=== PATIENT | female | born 1940 | race Caucasian/White ===

== ENCOUNTER 2018-09-05 02:47 | Inpatient (IN) | payer MEDICARE, OTHER ==
--- NOTE | 2018-09-05 03:07 | ED ---
Adult Trauma - HPI Summary HPI Summary: This patient is a 78 year old F BIBA to ED with a chief complaint of unwitnessed falls and confusion yesterday. Patient lives alone at home and is usually able to take care of herself. Patient reports lower back pain and a bruise over the left eye. She is not on blood thinners. She is accompanied by her son who last saw her normal two days ago. The patient rates the pain 5/10 in severity. Symptoms aggravated by nothing. Symptoms alleviated by nothing. - History of Current Complaint Chief Complaint: EDFall Stated Complaint: FALL/AMS PER EMS Time Seen by Provider: 09/05/18 02:56 Hx Obtained From: Patient, Family/Station Mechanic - Son Mechanism of Injury: Fall Loss of Consciousness: unsure Onset/Duration: Started Days Ago - Yesterday Onset of Pain: Post Accident Onset Severity: Moderate Current Severity: Moderate Pain Intensity: 5 Pain Scale Used: 0-10 Numeric Location: Back Aggravating Factor(s): Nothing Alleviating Factor(s): Nothing Associated Signs & Symptoms: Positive: Ecchymosis - Over eye - Allergy/Home Medications Allergies/Adverse Reactions: Allergies Allergy/AdvReac Type Severity Reaction Status Date / Time No Known Allergies Allergy Verified 09/05/18 03:31 Home Medications: Home Medications NK [No Home Medications Reported] 09/05/18 [History Confirmed 09/05/18] PMH/Surg Hx/FS Hx/Imm Hx Endocrine/Hematology History: Denies: Hx Diabetes Cardiovascular History: Denies: Hx Hypertension Respiratory History: Denies: Hx Asthma, Hx Chronic Obstructive Pulmonary Disease (COPD) - Surgical History Surgery Procedure, Year, and Place: Cholecystectomy Infectious Disease History: No Infectious Disease History: Denies: Traveled Outside the [place] in Last 30 Days - Family History Known Family History: Negative: Hypertension, Diabetes - Social History Alcohol Use: None Hx Substance Use: No Substance Use Type: Reports: None Hx Tobacco Use: Yes Smoking Status (MU): Current Every Day Smoker Review of Systems Negative: Abdominal Pain Musculoskeletal: Other - Lower back pain Skin: Other - Bruise on face over left eye All Other Systems Reviewed And Are Negative: Yes Physical Exam - Summary Physical Exam Summary: Appearance: Well appearing, no pain distress Skin: warm, dry, reflects adequate perfusion Head/face: normal Eyes: black discoloration over left orbit ENT: normal Neck: supple, non-tender Respiratory: CTA, breath sounds present Cardiovascular: RRR, pulses symmetrical Abdomen: non-tender, soft Musculoskeletal: normal, strength/ROM intact Neuro: normal, sensory motor intact, A&Ox3 GCS: 15 Triage Information Reviewed: Yes Vital Signs On Initial Exam: Initial Vitals Temp Pulse Resp BP Pulse Ox 98.0 F 70 18 110/65 89 09/05/18 02:50 09/05/18 02:50 09/05/18 02:50 09/05/18 02:50 09/05/18 02:50 Vital Signs Reviewed: Yes Diagnostics - Vital Signs Vital Signs Temp Pulse Resp BP Pulse Ox 09/05/18 02:50 98.0 F 70 18 110/65 89 - Laboratory Result Diagrams: 09/05/18 04:51 09/05/18 04:51 Lab Statement: Any lab studies that have been ordered have been reviewed, and results considered in the medical decision making process. - Radiology CXR Radiology Interpretation Completed By: ED Physician Summary of Radiographic Findings: Right upper lobe infiltrate, PNA or mass, pending official radiology report. - CT Brain CT Interpretation Completed By: Radiologist Summary of CT Findings: No acute intracranial abnormality. Dr. Galvan has reviewed this radiology report. Maxillofacial CT CT Interpretation Completed By: Radiologist Summary of CT Findings: Mild soft tissue contusion in the left cheek. No acute fracture. Dr. Galvan has reviewed this radiology report. C-spine CT Interpretation Completed By: Radiologist Summary of CT Findings: 1. No acute findings. 2. Multilevel degenerative spondylosis, greatest at C5-C6 level with mild spinal stenosis and mild bilateral neural foraminal narrowing. 3. Enlarged left thyroid lobe with multiple nodules, the largest one measuring 3.2 cm. further evaluation with thyroid ultrasound may be considered. 4. Partially visualized dense consolidation in the right upper lobe and patchy groundglass opacities in the visualized bilateral lungs. If clinically warranted, further evaluation with dedicated CT of the chest may be considered. Pending official radiology report. L-spine CT Interpretation Completed By: Radiologist Summary of CT Findings: 1. Age indeterminate burst fracture of L3 vertebral body with retropulsion into the spinal canal. Moderate spinal stenosis at L2- L3. 2. Age indeterminate, probably chronic, fracture in the left transverse process of L3. 3. Multilevel degenerative spondylosis, greatest at L4-L5 level with moderate to severe central spinal canal stenosis and severe bilateral neural foraminal narrowing. Dr. Galvan has reviewed this radiology report. - EKG 0323 Cardiac Rate: Tachycardia - 101 BPM EKG Rhythm: Sinus Tachycardia Summary of EKG Findings: Sinus tachycardia at 101 BPM with STT changes and RBBB. Re-Evaluation - Re-Evaluation First Eval Re-Evaluation Time: 05:35 Comment: Discussed results with patient. Patient will be admitted with dx of PNA , mass of right upper lobe of lung, syncope, hypercalcemia, L3 fracture. Patient understands and agrees with this plan. Adult Trauma Course/Dx - Course Course Of Treatment: This patient is a 78 year old F BIBA to ED with a chief complaint of unwitnessed falls and confusion yesterday. EKG revealed sinus tachycardia at 101 BPM with STT changes and RBBB. Brain CT revealed no acute intracranial abnormality. Maxillofacial CT revealed mild soft tissue contusion in the left cheek. No acute fracture. CXR revealed right upper lobe infiltrate, PNA or mass, pending official radiology report. C-spine CT revealed 1. No acute findings. 2. Multilevel degenerative spondylosis, greatest at C5-C6 level with mild spinal stenosis and mild bilateral neural foraminal narrowing. 3. Enlarged left thyroid lobe with multiple nodules, the largest one measuring 3.2 cm. further evaluation with thyroid ultrasound may be considered. 4. Partially visualized dense consolidation in the right upper lobe and patchy groundglass opacities in the visualized bilateral lungs. If clinically warranted, further evaluation with dedicated CT of the chest may be considered. CT L-spine revealed 1. Age indeterminate burst fracture of L3 vertebral body with retropulsion into the spinal canal. Moderate spinal stenosis at L2-L3. 2. Age indeterminate, probably chronic, fracture in the left transverse process of L3. 3. Multilevel degenerative spondylosis, greatest at L4-L5 level with moderate to severe central spinal canal stenosis and severe bilateral neural foraminal narrowing. In the ED course, patient received Aspirin, Rocephin and Zithromax. Blood work obtained. Discussed results with Dr. Seaman, hospitalist, who accepted the patient for admission to [facility] Discussed patient case with Dr. Loera, neurosurgeon, who recommended an MRI. Patient will be admitted with dx of PNA, mass of right upper lobe of lung, syncope, hypercalcemia, L3 fracture. Patient understands and agrees with this plan. - Diagnoses Differential Diagnosis/HQI/PQRI: Positive: Contusion(s), Fracture, Hematoma(s), Sprain Provider Diagnoses: PNA (pneumonia), Mass of upper lobe of right lung, Syncope, Hypercalcemia, L3 vertebral fracture - Physician Notifications Discussed Care Of Patient With: Lily Seaman Time Discussed With Above Provider: 05:40 Instructed by Provider To: Other - Discussed patient case with Dr. Seaman, hospitalist, who accepted the patient for admission to [facility]. At 0548, discussed patient case with Dr. Loera, neurosurgeon, who recommended an MRI. - Critical Care Time Critical Care Time: 30-74 min - 60 min Discharge - Sign-Out/Discharge Documenting (check all that apply): Patient Departure Patient Received Moderate/Deep Sedation with Procedure: No - Discharge Plan Condition: Stable Disposition: ADMITTED TO [facility] Referrals: No Primary Care Phys,NOPCP [Primary Care Provider] - - Billing Disposition and Condition Condition: STABLE Disposition: Admitted to [facility] - Attestation Statements Document Initiated by Leeannibe: Yes Documenting Scribe: Frank Sanchez Provider For Whom Johnnie is Documenting (Include Credential): Sd Galvan MD Scribe Attestation: IFrank, scribed for Sd Galvan MD on 09/05/18 at 0621. Scribe Documentation Reviewed: Yes Provider Attestation: The documentation as recorded by the scribeFrank accurately reflects the service I personally performed and the decisions made by me, Sd Galvan MD Status of Scribe Document: Viewed
[2018-09-05] MEDS ORDERED: Azithromycin 500 mg/250 ml NS 500 MG/250 ML BAG IVPB ONE (04:36)
[2018-09-05] MEDS ORDERED: cefTRIAXone(*) 1 GM in NS 0.9% 50 ML* 50 ML IVPB ONE (04:36)
[2018-09-05 05:01] LABS: ABS Basophils 0.1 10^3/ul (0-0.2); ABS Lymphocytes 0.8 10^3/ul (1.0-4.8); ABS Monocytes 0.8 10^3/ul (0-0.8); ABS Neutrophils 5.8 10^3/ul (1.5-7.7); Eosinophil % 0.3 %; Hematocrit 36 % (35-47); Hemoglobin 13.1 g/dL (12.0-16.0); Lymphocyte % 10.9 %; Mean Corpuscular HGB Conc 37 g/dL (31-36); Mean Corpuscular Hemoglobin 34 pg (27-31); Mean Corpuscular Volume 92 fL (80-97); Mean Platelet Volume 6.4 fL (7.4-10.4); Nucleated Red Blood Cells % 0.1; Platelet Count 267 10^3/uL (150-450); Red Blood Count 3.89 10^6 /uL (3.70-4.87); Red Cell Distribution Width 15 % (10-15); White Blood Count 7.5 10^3/uL (3.5-10.8)
[2018-09-05 05:08] LABS: Activated Partial Thrombo Time 18.3 seconds (26.0-38.0); INR 0.98 (0.82-1.09)
[2018-09-05 05:18] LABS: ALT 15 U/L (7-52); AST 30 U/L (13-39); Albumin 3.5 g/dL (3.2-5.2); Albumin/Globulin Ratio 1.2 (1-3); Alkaline Phosphatase 96 U/L (34-104); Anion Gap 7 mmol/L (2-11); BUN/Creatinine Ratio 30.4 (8-20); Blood Urea Nitrogen 35 mg/dL (6-24); CO2 Carbon Dioxide 27 mmol/L (22-32); Chloride 100 mmol/L (101-111); Creatine Kinase 55 U/L (10-223); EGFR African American 55.5 (>60); EGFR Non-African American 45.9 (>60); Globulin 2.9 g/dL (2-4); Glucose 85 mg/dL (70-100); Potassium 4.2 mmol/L (3.5-5.0); Sodium 134 mmol/L (135-145); Total Protein 6.4 g/dL (6.4-8.9)
[2018-09-05] MEDS ORDERED: Aspirin 81 mg CHEW TAB* 81 MG TAB.CHEW PO ONE (05:31)
[2018-09-05 05:34] LABS: Calcium > 18.0 mg/dL (8.6-10.3)
[2018-09-05] MEDS ORDERED: Al Hydrox/Mg Hydrox/Simet LIQ* 30 ML UDC PO PRN (05:45)
[2018-09-05] MEDS ORDERED: Ondansetron INJ* 2 MG/ML VIAL IV PRN (05:45)
[2018-09-05] MEDS ORDERED: NS 0.9% 1000 ML** 1,000 ML IV SCH ×2 (05:45→08:15)
[2018-09-05] MEDS ORDERED: NS 0.9% 1000 ML** 1,000 ML IV ONE ×3 (05:59→16:03)
[2018-09-05] MEDS ORDERED: Calcitonin (Salmon) INJ* 200 UNITS/ML 2 ML VIAL IM ONE ×2 (06:18→18:00)
[2018-09-05 07:05] LABS: Vitamin D Total 25(OH) 12.8 ng/mL (20-50)
[2018-09-05] MEDS: Heparin VIAL(*) 5000 UNITS/ML VIAL (FIVE THOUSAND) SUBCUT SCH ×3 (07:17→20:44)
[2018-09-05 07:29] LABS: Troponin I 0.07 ng/mL (<0.04)
[2018-09-05] MEDS ORDERED: Zoledronic Acid* 4 MG in NS 0.9% 100 ML* 95 ML IVPB ONE (08:06)
--- NOTE | 2018-09-05 08:43 | HP ---
HISTORY AND PHYSICAL: DATE OF ADMISSION: 09/05/18 TIME OF ADMISSION: 6:15 a.m. PRIMARY CARE PHYSICIAN: None. CHIEF COMPLAINT: Found down. HISTORY OF PRESENT ILLNESS: This is a 78-year-old female with a history of thyroid nodule who presents to the emergency department after her son found her last evening. She is unable to provide the history of present illness. When asked why she is in the emergency department, she says "I was asked to help them get landed." Her son Raya is here with her and provides the history. He explains that on Wednesday evening around 7 p.m., he stopped by her house to see her and drop off food, but when he knocked she said hold on and a few minutes later he knocked again and he could hear her talking from closer to the door, but she was on the ground and she could not get to the door, and so she tried to slide him a olsen underneath the door, but could not. So, Raya's daughter climbed into a window and unlocked the door from the inside. They found Garcy lying on the floor on her side, alert and not in distress, but with ecchymosis on her face. Her son adds that she has become more weak and had decreased mobility over the past months. He suggested that she see a doctor about a week ago, but she refused. She does not have a routine medical followup and cannot remember the last time she saw a doctor. Her son also adds a general decline in her functional capacity over the past several months. Gracy believes that she has gained weight; however, her son thinks she has lost about 50 pounds. She denies night sweats, cough, hemoptysis, fevers, chest pain, shortness of breath, orthopnea, dyspnea on exertion. She does admit to constipation. In the emergency department, she was found to have hypercalcemia and concern for a lung mass versus pneumonia and was given ceftriaxone and azithromycin. She also complains of recent hip and back pain that has effected her mobility. PAST MEDICAL HISTORY: She had a partial thyroidectomy with right parathyroid removal 2 years ago. She believes this was for benign reasons. FAMILY HISTORY: Thyroid disease. SOCIAL HISTORY: She lives alone and operates independently in her ADLs and IADLs. She smokes 6 cigarettes per day and has smoked for a "long time." She is unable to tell me how long she has smoked for, but used to smoke heavier she says. REVIEW OF SYSTEMS: As per the HPI, the remainder of 14-point review of systems is negative. PHYSICAL EXAMINATION GENERAL: Drowsy elderly female, who appears older than her stated age. She awakes to voice and answers some of my questions, but falls asleep frequently. She answers most of my questions inappropriately. VITAL SIGNS: Temperature 97.4, heart rate 102, respiratory rate 18, pulse ox 94 % on 3 L, blood pressure 104/73. HEENT: Pupils are 4 mm bilaterally and reactive to light. No scleral icterus. She has an ecchymosis on her left orbit. Oral mucosa is extremely dry. NECK: No JVP. No adenopathy. Her thyroid is not palpable. She has an old thyroidectomy scar. She is tachycardic with no murmurs. LUNGS: Her lungs are clear bilaterally. She has no supraclavicular or cervical lymphadenopathy. ABDOMEN: Soft, nontender, nondistended. No CVA tenderness. EXTREMITIES: No edema, rashes, or ulcers. NEUROLOGIC: Her lower extremity strength is 3/5 bilaterally and I cannot attain patellar deep tendon reflexes. She is drowsy, but awakens to voice and participates in some of our conversation, but falls asleep quickly. DIAGNOSTIC STUDIES/LAB DATA: White blood cells 7.5, hemoglobin 13.1, platelets 267. INR 0.98. Sodium 134, potassium 4.2, chloride 100, BUN 35, creatinine 1.15, glucose 85, lactic acid 1.8, calcium over 18. Troponin 0.07. Imaging: A brain CT shows no acute intracranial abnormality, a cervical spine CT shows no acute findings, multilevel degenerative spondylosis, greatest at C5 to C6 level with mild spinal stenosis and mild bilateral neuroforaminal narrowing and large thyroid lobe with multiple nodules, largest one measuring 3.2 cm. Further evaluation with thyroid ultrasound may be considered and partially visualized dense consolidation in the right upper lobe and patchy ground glass opacities in the bilateral lungs. A lumbar spine CT shows age indeterminate burst fracture of L3 vertebral body with retropulsion into the spinal canal, moderate spinal stenosis at L2-3 age indeterminate, probable chronic fracture in the left transverse process of L3 multilevel degenerative spondylosis, greatest at L4-5 with [id number] central spinal canal stenosis and severe bilateral neuroforaminal narrowing. Maxillofacial CT: Mild soft tissue contusion in the left cheek. No acute fracture. Chest x-ray to my read shows hyperinflation with a large haziness in the right upper lobe. ASSESSMENT AND PLAN: This is a 78-year-old female with no significant past medical history, who presents to the emergency department after being down and was found to be profoundly hypercalcemic. 1. Hypercalcemia. The differential of hypercalcemia is broad and at this point is most concerning for a malignancy given her chest x-ray findings, her weight loss, and other associated symptoms like hip and back pain in combination with a significant tobacco history. I am ordering a CT chest now to better characterize the lung mass. I am adding on an ionized calcium, vitamin D, phosphorus, PTH, and PTHRP. She has not received any IV fluids yet. I am starting normal saline at 250 an hour and also given her calcitonin to bring her calcium down quickly. She will need close monitoring of her calcium levels. Depending on the results of her CT scan, consultations with Oncology or Endocrinology may be warranted, but I will hold off on these phone calls until we initiate a better workup. 2. Found down. I suspect this is related to the hypercalcemia had on a CK. She has marked muscular weakness and this may be multifactorial and related to her hypercalcemia, but also concerning given her L spine findings. I will work this up as below. 3. L3 burst fracture with retropulsion and transverse process fracture of L3. Dr. Galvan has a call out to Neurosurgery and we will appreciate their input. Ultimately, I think she will need an MRI of her L spine to better characterize these fractures and also evaluate whether metastatic disease is related to this. I will hold off on pain control now given her drowsiness and she is quite comfortable. 4. Elevated troponin. I suspect this was related to her fall and demand; however, her EKG is different than her prior EKG but that was 12 years ago. She has received aspirin in the emergency department. We will trend her troponin, monitor her on telemetry, and repeat an EKG later today. 5. DVT prophylaxis. Heparin subcu. 6. Disposition. Admit to inpatient for hypercalcemia. She may need Oncology, Endocrinology, and Neurosurgical consultations. She does not have a healthcare proxy; however, her son is her only child and she has no , so he will be the default healthcare proxy. She is currently unable to make decisions on her own. She has never made an advanced directive. She is full code at this time. [id number]/[facility] #: [id number] ELAINA
[2018-09-05 09:07] LABS: Urine Appearance Cloudy; Urine Bacteria 1+ (Absent); Urine Bilirubin Negative (Negative); Urine Blood 2+ (Negative); Urine Color Yellow; Urine Glucose Negative (Negative); Urine Ketones Trace (Negative); Urine Nitrite Positive (Negative); Urine Protein 1+(30 mg/dL) (Negative); Urine Red Blood Cell 2+(6-10/hpf) (Absent); Urine Specific Gravity 1.012 (1.010-1.030); Urine Squamous Epithelial Cell Present (Absent); Urine Urobilinogen Negative (Negative); Urine White Blood Cell 3+(>20/hpf) (Absent)
--- NOTE | 2018-09-05 11:57 | CONS ---
CONSULTATION REPORT: DATE OF CONSULT: 09/05/18 HISTORY OF PRESENT ILLNESS: A 78-year-old female who is post a witnessed mechanical fall at home. Son is at bedside to give history. According the son she fell patient attempting to answering the door, when he knocked on the door. During her fall she hit her head sustaining injury to her left eye. Patient was unable to stand after fall, she attempted slide olsen underneath the door. Eventually son reports having daughter go through the window to pen the door, that's when patient was found down on floor. She denies loss of consciousness. Currently, the patient has acute low back pain with no radicular pain x1 day. Denies any issues with loss of control of bladder or bowel. Son reports taking the patient home to his house because she refused to go the hospital to be evaluated. While at her son's house friend come over who happened to be a nurse , seen the patient and then suggested the patient come to the hospital. The patient was brought in by ambulance with complaint of low back pain with no radicular pain. CT scan was completed showing an L3 burst fracture with left distal TP fracture. Currently, the patient denies headache, nausea, vomiting, or visual changes. Also denies weakness in extremities as well. PREVIOUS MEDICAL HISTORY: The patient has history of thyroid pathology. PAST SURGICAL HISTORY: The patient has had surgery on thyroid and the gallbladder removed. MEDICATIONS: See chart. ALLERGIES: Son reports possible allergy to PENICILLIN. SOCIAL HISTORY: Positive for tobacco use. Denies alcohol use and negative drug use. OBJECTIVE: Temperature is 97.4, pulse is 95, blood pressure is 129/71, O2 saturation is 96%. PHYSICAL EXAM: The patient is lying flat on bed with no acute distress. She is very and confused slow to respond to questions. HEENT: The patient has a hematoma over the superior portion of the right eye. Neuro: GCS 15. Alert and oriented x2. The patient follows commands, but is confused with some of the commands given. Motor strength in upper extremity is 5/5 bilaterally with elbow flexion and extension. The patient has some discomfort with flexing and extending her head. Lower extremity motor strength is 5/5 with hip flexion and extension, with knee flexion and extension 5/5, plantar and dorsiflexion is 5/ 5. Sensation is intact throughout. Negative Babinski's. Negative clonus. DIAGNOSTIC STUDIES/LAB DATA: CT of head shows no acute bleeding or injury. CT of lumbar spine shows an L3 burst fracture with left transverse process fracture, age undetermined. CT of cervical spine completed, there are moderate degenerative changes, most severe at C5-C6, no acute findings noted. ASSESSMENT: A 78-year-old female with L3 burst fracture, left transverse process fracture. Neurologically intact with no focal deficits. PLAN: 1. Get CT scan of the thoracic spine. 2. Get MRI of the lumbar spine. 3. Follow up imaging. 4. The patient to remain on bedrest. 5. Get TLSO brace and have the patient fitted for TLSO brace and have brace at bedside. 6. If the patient has acute fracture, we will have the patient in brace, should be wearing brace anytime she is upright more than 45 degrees. We will also evaluate to see if the patient has acute ligament damage from fracture, which will determine our course of treatment. JOANN BEAR [id number]/[facility] #: [id number] MTDAg
[2018-09-05 12:44] LABS: Anion Gap 6 mmol/L (2-11); BUN/Creatinine Ratio 32.7 (8-20); Blood Urea Nitrogen 33 mg/dL (6-24); CO2 Carbon Dioxide 27 mmol/L (22-32); Chloride 105 mmol/L (101-111); EGFR African American 64.5 (>60); EGFR Non-African American 53.3 (>60); Glucose 108 mg/dL (70-100); Potassium 3.9 mmol/L (3.5-5.0); Sodium 138 mmol/L (135-145)
[2018-09-05 13:08] LABS: Troponin I 0.06 ng/mL (<0.04)
[2018-09-05] MEDS: NS 0.9% 1000 ML** 1,000 ML IV SCH (15:11)
--- NOTE | 2018-09-05 15:12 | PN ---
Subjective Date of Service: 09/05/18 Interval History: HOSPITALIST PROGRESS NOTE Patient seen and examined at bedside. Care reviewed and d/w Tyrell Stockton RN. She's just returned from MRI; she offers no complaints at this time. Most of the h/o is obtained from her son (Juancho) - he has noted progressive decline in her condition for > 3 months. C/o left hip pain, back pain, taking OTC NSAIDs for pain, sleeping with a warm bottle. Went to a chiropractor, but did not see her PCP (he thinks is Dr Paulino at [facility]). He also noticed significant weight loss, estimated around 30lbs. Over the past 3 weeks, he has noticed progressive weakness, confusion, and yesterday found her down as described in the HPI. Family History: Unchanged from Admission Social History: Unchanged from Admission Past Medical History: Unchanged from Admission Objective Active Medications: Al Hydrox/Mg Hydrox/Simethicone (Maalox Plus*) 30 ml PO Q6H PRN PRN Reason: INDIGESTION Calcitonin [place] (Miacalcin Inj*) 200 units IM ONCE ONE Stop: 09/05/18 18:01 Heparin Sodium (Porcine) (Heparin Vial(*)) 5,000 units SUBCUT Q8HR BRITTANY Last Admin: 09/05/18 07:17 Dose: 5,000 units Sodium Chloride (Ns 0.9% 1000 Ml) 1,000 mls @ 200 mls/hr IV PER RATE BRITTANY Ondansetron HCl (Zofran Inj*) 4 mg IV Q4H PRN PRN Reason: NAUSEA/VOMITING Vital Signs - 8 hr 09/05/18 09/05/18 09/05/18 07:12 07:20 07:50 Temperature Pulse Rate 92 93 96 Respiratory 18 14 23 Rate Blood Pressure 119/67 120/67 129/71 (mmHg) O2 Sat by Pulse 90 94 96 Oximetry 09/05/18 09/05/18 09/05/18 07:56 08:33 08:35 Temperature 97.4 F 97.3 F Pulse Rate 95 95 Respiratory 23 20 Rate Blood Pressure 129/71 106/66 (mmHg) O2 Sat by Pulse 96 88 93 Oximetry 09/05/18 09/05/18 10:59 14:13 Temperature 97.3 F Pulse Rate 90 Respiratory 17 Rate Blood Pressure 90/52 92/50 (mmHg) O2 Sat by Pulse 90 Oximetry Oxygen Devices in Use Now: Nasal Cannula Appearance: Elderly frail appearing lady lying in bed in NAD. Eyes: - - Left orbital ecchymosis Ears/Nose/Mouth/Throat: Mucous Membranes Moist Neck: Trachea Midline, - - Old thyroid surgery scar Respiratory: Symmetrical Chest Expansion and Respiratory Effort, Clear to Auscultation Cardiovascular: RRR - Normal S1 and S2 Abdominal: NL Sounds; No Tenderness; No Distention Extremities: - - No cyanosis or edema, has good capillary refill Neurological: - - Sleepy, easily arousable to voice, Ox2 (self and place) Result Diagrams: 09/05/18 04:51 09/05/18 12:02 Assess/Plan/Problems-Billing Assessment: Mrs Vallejo is a 78yo F with PMH of thyroid disease, who presented to ED after being found down at home, found to have severe hypercalcemia, hilar mass and bone lesions suggestive of metastatsis. - Patient Problems (1) Hypercalcemia Comment: - Likely associated with malignancy. - >18 on admission, down to 16.3. - PTH is 5.4, vitamin D 12.8. PTHrp is pending. - Has received NS 3 liters so far - will continue aggressive IVF and monitor for signs of fluid overload. - Continue calcitonin for 24 more hours. - Received Zoledronic acid today. - Awaiting Oncology input. (2) Hypotension Comment: - Suspect hypovolemia in the setting of severe hypercalcemia. - Lactic acid on admission was 1.8. - Will continue aggressive fluid resuscitation and monitor. (3) Pneumonia Comment: - Suspect post obstructive pneumonia in the setting of righ hilar mass. - Continue Ceftriaxone/Zithromax. - Check Legionella/Pneumococcal Ags. - Follow blood cultures. (4) Hilar mass Comment: - CT chest shows a right hilar mass - d/w Oncology - patient will likely need EBUS when more stable. - Pulmonary consult requested. (5) Vertebral fracture Comment: - CT shows T11 destructive osseous lesion with possible vertebral fracture; chronic compression fracture T6; indeterminate L3 burst fracture. - Neurosurgery consult requested - recommended MRI lumbar spine. (6) DVT prophylaxis Comment: - SQ heparin. (7) Full code status Status and Disposition: Inpatient. Son (Juancho) updated at bedside.
--- NOTE | 2018-09-05 19:08 | PN ---
Progress Note - Progress Note Date of Service: 09/05/18 Note: spoke with Dr. Rincon (radiology) about possible epidural tumor extension on CT thoracic spine. MRI T spine recommended and ordered
[2018-09-05 20:36] LABS: BUN/Creatinine Ratio 33.7 (8-20); EGFR African American 71.8 (>60); EGFR Non-African American 59.4 (>60); Potassium 3.7 mmol/L (3.5-5.0)
[2018-09-05] MEDS ORDERED: Haloperidol INJ IV/IM* 5 MG/ML AMP IM ONE (21:45)
[2018-09-06] MEDS: NS 0.9% 1000 ML** 1,000 ML IV SCH ×4 (00:12→22:41)
[2018-09-06 00:19] LABS: Calcium 16.3 mg/dL (8.6-10.3)
[2018-09-06 00:20] LABS: Troponin I 0.07 ng/mL (<0.04)
[2018-09-06] MEDS: cefTRIAXone(*) 1 GM in NS 0.9% 50 ML* 50 ML IVPB SCH (05:33)
[2018-09-06] MEDS: Azithromycin 500 mg/250 ml NS 500 MG/250 ML BAG IVPB SCH (05:55)
[2018-09-06] MEDS: Heparin VIAL(*) 5000 UNITS/ML VIAL (FIVE THOUSAND) SUBCUT SCH (05:55)
[2018-09-06 07:41] LABS: Calcium 12.7 mg/dL (8.6-10.3); EGFR African American 93.8 (>60); EGFR Non-African American 77.5 (>60); Potassium 3.4 mmol/L (3.5-5.0)
--- NOTE | 2018-09-06 07:45 | PN ---
Progress Note - Progress Note Date of Service: 09/06/18 Note: Patient has been unclear or if she has neck pain, she having given conflicting answers. Patient did attempt to flex and extend head and indicated she had pain , CT scan did not demonstrate any acute injury. At this time will recommend a [place] J collar and C spine MRI. In addition to the Thoracic and Lumbar spine MRI.
[2018-09-06 08:33] LABS: ABS Basophils 0.1 10^3/ul (0-0.2); ABS Lymphocytes 0.7 10^3/ul (1.0-4.8); ABS Monocytes 0.7 10^3/ul (0-0.8); Eosinophil % 0.2 %; Hematocrit 31 % (35-47); Hemoglobin 10.3 g/dL (12.0-16.0); Mean Corpuscular HGB Conc 34 g/dL (31-36); Mean Corpuscular Hemoglobin 29 pg (27-31); Mean Corpuscular Volume 86 fL (80-97); Mean Platelet Volume 6.8 fL (7.4-10.4); Nucleated Red Blood Cells % 0.1; Platelet Count 220 10^3/uL (150-450); Red Blood Count 3.57 10^6 /uL (3.70-4.87); Red Cell Distribution Width 16 % (10-15); White Blood Count 6.4 10^3/uL (3.5-10.8)
[2018-09-06] MEDS ORDERED: Haloperidol INJ IV/IM* 5 MG/ML AMP IM PRN (08:38)
[2018-09-06] MEDS ORDERED: Iohexol 300* (CONTRAST) 10 ML SDV IV ONE (09:45)
[2018-09-06] MEDS ORDERED: NS 0.9% 1000 ML** 1,000 ML IV ONE ×2 (11:48→12:59)
[2018-09-06] MEDS ORDERED: Lorazepam PYXIS KEY PRN (12:28)
[2018-09-06] MEDS ORDERED: Morphine INJ* 2 MG/ML 1 ML SYRINGE (TWO MG - NEW SYRINGE VERSION) ONE (12:45)
[2018-09-06] MEDS: Morphine INJ* 2 MG/ML 1 ML SYRINGE (TWO MG - NEW SYRINGE VERSION) IV PRN ×5 (12:48→22:47)
--- NOTE | 2018-09-06 13:16 | PN ---
Subjective Date of Service: 09/06/18 Interval History: HOSPITALIST PROGRESS NOTE Patient seen and examined at bedside. Care reviewed and d/w Erna Solano RN. She was agitated overnight and removed her IV. Confused, cursing at provider and RN at bedside. Able to move all 4 extremities with vigor, but would not follow commands. Re-evaluate later on with son at bedside, and at that time she appeared to be uncomfortable, grimacing, but could not pinpoint where pain is. Family History: Unchanged from Admission Social History: Unchanged from Admission Past Medical History: Unchanged from Admission Objective Active Medications: Haloperidol Lactate (Haldol Inj Iv/Im*) 2 mg IM Q6H PRN PRN Reason: AGITATION Last Admin: 09/06/18 09:40 Dose: 2 mg Sodium Chloride (Ns 0.9% 1000 Ml) 1,000 mls @ 200 mls/hr IV PER RATE [facility] Last Admin: 09/06/18 05:33 Dose: 200 mls/hr Azithromycin (Zithromax 500 Mg/250 Ml) 500 mg in 250 mls @ 250 mls/hr IVPB Q24H [facility] Last Admin: 09/06/18 05:55 Dose: 250 mls/hr Ceftriaxone Sodium 1 gm/ (Sodium Chloride) 50 mls @ 200 mls/hr IVPB Q24H [facility] Last Admin: 09/06/18 05:33 Dose: 200 mls/hr Sodium Chloride (Ns 0.9% 1000 Ml) 1,000 mls @ 0 mls/hr IV .BOLUS ONE Stop: 09/06/18 13:00 Last Admin: 09/06/18 13:03 Dose: 999 mls/hr Lorazepam (Ativan Inj*) 0.5 mg IV PUSH Q4H PRN PRN Reason: Anxiety/Severe agitation Miscellaneous (Ativan Pyxis Kim) 1 ea N/A .ATIVAN IV KIM PRN PRN Reason: PYXIS KIM Morphine Sulfate (Morphine Inj (Syringe))*) 1 mg IV Q1H PRN PRN Reason: Severe Pain/RR>24 Last Admin: 09/06/18 12:48 Dose: 1 mg Vital Signs - 8 hr 09/06/18 09/06/18 09/06/18 08:00 12:48 12:50 Respiratory 20 28 Rate Blood Pressure 94/44 (mmHg) Oxygen Devices in Use Now: Nasal Cannula Appearance: Elderly frail lady lying in bed in NAD Ears/Nose/Mouth/Throat: Mucous Membranes Moist Neck: Trachea Midline Respiratory: Symmetrical Chest Expansion and Respiratory Effort, Clear to Auscultation Cardiovascular: RRR - Normal S1 and S2 Abdominal: NL Sounds; No Tenderness; No Distention Neurological: - - Lethargic, arousable to voice, cursing examiner and RN, doesn' t follow commands, but moves 4 extremities Result Diagrams: 09/06/18 06:46 09/06/18 06:46 Microbiology and Other Data: Microbiology 09/05/18 04:51 Aerobic Blood Culture - Preliminary Blood Venous No Growth Day 1 Anaerobic Blood Culture - Preliminary No Growth Day 1 09/05/18 18:17 Legionella Urinary Antigen - Final Urine Negative Legionella Antigen 09/05/18 18:17 Streptococcus pneumoniae Ag Screen - Final Urine Negative S. pneumo Antigen Assess/Plan/Problems-Billing Assessment: Mrs Vallejo is a 78yo F with PMH of thyroid disease, who presented to ED after being found down at home, found to have severe hypercalcemia, hilar mass and bone lesions suggestive of metastatsis. - Patient Problems (1) Hypercalcemia Comment: - Likely associated with malignancy. - >18 on admission, down to 12.7. - PTH is 5.4, vitamin D 12.8. PTHrp is pending. - Will continue aggressive IVF and monitor for signs of fluid overload. - Received Zoledronic acid 09/05/18. - Awaiting Oncology input. (2) Hypotension Comment: - Suspect hypovolemia in the setting of severe hypercalcemia, but worse today. - Continue aggressive IVF. (3) Pneumonia Comment: - Suspect post obstructive pneumonia in the setting of righ hilar mass. - Continue Ceftriaxone/Zithromax. - Legionella/Pneumococcal Ags. - Blood cultures show no growth so far. (4) Hilar mass Comment: - CT chest shows a right hilar mass, likely represents primary Lung CA. (5) Vertebral fracture Comment: - CT shows T11 destructive osseous lesion with possible vertebral fracture; chronic compression fracture T6; indeterminate L3 burst fracture. - Thoracic spine CT shows T6 epidural expansion of tumor and possible spinal cord compression. (6) DVT prophylaxis Comment: - SQ heparin. (7) Full code status (8) End of life care Comment: - Lengthy conversation wtih son and DIL at bedside. Patient's is even more hypotensive today, even with aggressive IVF resuscitation yesterday. Will continue IVF, but we talked about aggressive measures, including transfer to ICU , central line, pressors, etc. We went over her probable diagnosis of Lung CA with metastasis, including the T6 on causing cord compression. They're very clear she would not want to pursue invasive measures, chemo or radiation. Goal at this time is to keep her comfortable while we wait for other family members to arrive. - Palliative care requested. Status and Disposition: Inpatient.
--- NOTE | 2018-09-06 16:10 | CONSULT ---
Palliative / Hospice Consult Ordering Provider: Linette Carpio Referal Reason: emotional/practical support - Subjective Code Status: DNR Advance Directives Location: No Advance Directives MOLST Part A Completed: Yes - on chart MOLST Part E Completed:: Yes - on chart - History or Present Illness History or Present Illness: 78yo female who fell at home and was brought to the ER by her son Wednesday night . Son has noted that mother has lost weight, been less mobile and more weak the past few weeks. PMH is significant partial thyroidectomy with R parathyroid removal 2yrs ago. She doesn't go to the doctors often. Pt lives on her own, smokes, no etoh, no drugs. Son Juancho is her HCP . Studies show CXR- RUL pneumonia, ekg-sinus tach, RBB, inferior infarct, brain CT neg, maxofacial CT neg,C/S CT no acute findings, lumbar spine CT showed L3 fx with retropulsion into spinal canal, spinal stenosis, chest CT-R hilar mass with lymph node enlargement, RUL mass like consolidation, destructive osseous lesion T11, lumbar spine MRI-50% compression of L3 vertebrae, thoracic spine MRI-severe compression fx V6 with epidural extension of tumor, H/H 10.3/31, BUN/Cr 9/.73 egfr 77.5, Ca 12.7, tprot 6.4 and alb 3.5. All history is from family and the medical record, pt is unable to contribute. Pt was admitted with hypercalcemia with concern for malignancy, L3 fracture and post obstructive pneumonia secondary to RUL mass. Lab Values: Abnormal Lab Results 09/05/18 09/05/18 09/05/18 04:51 12:02 20:13 WBC RBC Hgb Hct MCV MCH MCHC RDW Plt Count MPV Neut % (Auto) Lymph % (Auto) [place] % (Auto) Eos % (Auto) Baso % (Auto) Absolute Neuts (auto) Absolute Lymphs (auto) Absolute Monos (auto) Absolute Eos (auto) Absolute Basos (auto) Absolute Nucleated RBC Nucleated RBC % Sodium 140 Potassium 3.7 Chloride 111 Carbon Dioxide 21 L Anion Gap 8 BUN 31 H Creatinine 0.92 Est GFR ( Amer) 71.8 Est GFR (Non-Af Amer) 59.4 BUN/Creatinine Ratio 33.7 H Glucose 84 Calcium 16.3 H* 14.0 H* Troponin I 0.07 H* 09/06/18 09/06/18 06:46 06:46 WBC 6.4 RBC 3.57 L Hgb 10.3 L Hct 31 L MCV 86 MCH 29 MCHC 34 RDW 16 H Plt Count 220 MPV 6.8 L Neut % (Auto) 77.2 Lymph % (Auto) 11.0 [place] % (Auto) 10.2 Eos % (Auto) 0.2 Baso % (Auto) 1.4 Absolute Neuts (auto) 5.0 Absolute Lymphs (auto) 0.7 L Absolute Monos (auto) 0.7 Absolute Eos (auto) 0.0 Absolute Basos (auto) 0.1 Absolute Nucleated RBC 0.0 Nucleated RBC % 0.1 Sodium 143 Potassium 3.4 L Chloride 112 H Carbon Dioxide 22 Anion Gap 9 BUN 27 H Creatinine 0.73 Est GFR ( Amer) 93.8 Est GFR (Non-Af Amer) 77.5 BUN/Creatinine Ratio 37.0 H Glucose 76 Calcium 12.7 H Troponin I Laboratory Last Values WBC 6.4 10^3/uL (3.5-10.8) 09/06/18 06:46 RBC 3.57 10^6 /uL (3.70-4.87) L 09/06/18 06:46 Hgb 10.3 g/dL (12.0-16.0) L 09/06/18 06:46 Hct 31 % (35-47) L 09/06/18 06:46 MCV 86 fL (80-97) 09/06/18 06:46 MCH 29 pg (27-31) 09/06/18 06:46 MCHC 34 g/dL (31-36) 09/06/18 06:46 RDW 16 % (10-15) H 09/06/18 06:46 Plt Count 220 10^3/uL (150-450) 09/06/18 06:46 MPV 6.8 fL (7.4-10.4) L 09/06/18 06:46 Neut % (Auto) 77.2 % 09/06/18 06:46 Lymph % (Auto) 11.0 % 09/06/18 06:46 [place] % (Auto) 10.2 % 09/06/18 06:46 Eos % (Auto) 0.2 % 09/06/18 06:46 Baso % (Auto) 1.4 % 09/06/18 06:46 Absolute Neuts (auto) 5.0 10^3/ul (1.5-7.7) 09/06/18 06:46 Absolute Lymphs (auto) 0.7 10^3/ul (1.0-4.8) L 09/06/18 06:46 Absolute Monos (auto) 0.7 10^3/ul (0-0.8) 09/06/18 06:46 Absolute Eos (auto) 0.0 10^3/ul (0-0.6) 09/06/18 06:46 Absolute Basos (auto) 0.1 10^3/ul (0-0.2) 09/06/18 06:46 Absolute Nucleated RBC 0.0 10^3/ul 09/06/18 06:46 Nucleated RBC % 0.1 09/06/18 06:46 INR (Anticoag Therapy) 0.98 (0.82-1.09) 09/05/18 04:51 APTT 18.3 seconds (26.0-38.0) L 09/05/18 04:51 Sodium 143 mmol/L (135-145) 09/06/18 06:46 Potassium 3.4 mmol/L (3.5-5.0) L 09/06/18 06:46 Chloride 112 mmol/L (101-111) H 09/06/18 06:46 Carbon Dioxide 22 mmol/L (22-32) 09/06/18 06:46 Anion Gap 9 mmol/L (2-11) 09/06/18 06:46 BUN 27 mg/dL (6-24) H 09/06/18 06:46 Creatinine 0.73 mg/dL (0.51-0.95) 09/06/18 06:46 Est GFR ( Amer) 93.8 (>60) 09/06/18 06:46 Est GFR (Non-Af Amer) 77.5 (>60) 09/06/18 06:46 BUN/Creatinine Ratio 37.0 (8-20) H 09/06/18 06:46 Glucose 76 mg/dL (70-100) 09/06/18 06:46 Lactic Acid 1.8 mmol/L (0.5-2.0) 09/05/18 04:51 Calcium 12.7 mg/dL (8.6-10.3) H 09/06/18 06:46 Ionized Calcium 2.67 mmol/L (1.16-1.32) H* 09/05/18 06:32 Phosphorus 4.0 mg/dL (2.5-5.0) 09/05/18 04:51 Total Bilirubin 0.80 mg/dL (0.2-1.0) 09/05/18 04:51 AST 30 U/L (13-39) 09/05/18 04:51 ALT 15 U/L (7-52) 09/05/18 04:51 Alkaline Phosphatase 96 U/L (34-104) 09/05/18 04:51 Total Creatine Kinase 55 U/L (10-223) 09/05/18 04:51 Troponin I 0.06 ng/mL (<0.04) H* 09/05/18 12:02 B-Natriuretic Peptide 151 pg/mL (<=100) H 09/05/18 04:51 Total Protein 6.4 g/dL (6.4-8.9) 09/05/18 04:51 Albumin 3.5 g/dL (3.2-5.2) 09/05/18 04:51 Globulin 2.9 g/dL (2-4) 09/05/18 04:51 Albumin/Globulin Ratio 1.2 (1-3) 09/05/18 04:51 25-OH Vitamin D Total 12.8 ng/mL (20-50) L 09/05/18 04:51 PTH Intact 5.4 pg/mL (12-88) L 09/05/18 04:51 Calcium (PTH Intact) > 18.0 mg/dL (8.6-10.3) H* 09/05/18 04:51 Urine Color Yellow 09/05/18 08:39 Urine Appearance Cloudy 09/05/18 08:39 Urine pH 5.0 (5-9) 09/05/18 08:39 Ur Specific [place] 1.012 (1.010-1.030) 09/05/18 08:39 Urine Protein 1+(30 mg/dl) (Negative) A 09/05/18 08:39 Urine Ketones Trace (Negative) A 09/05/18 08:39 Urine Blood 2+ (Negative) A 09/05/18 08:39 Urine Nitrate Positive (Negative) A 09/05/18 08:39 Urine Bilirubin Negative (Negative) 09/05/18 08:39 Urine Urobilinogen Negative (Negative) 09/05/18 08:39 Ur Leukocyte Esterase 3+ (Negative) A 09/05/18 08:39 Urine WBC (Auto) 3+(>20/hpf) (Absent) A 09/05/18 08:39 Urine RBC (Auto) 2+(6-10/hpf) (Absent) A 09/05/18 08:39 Ur Squamous Epith Cells Present (Absent) A 09/05/18 08:39 Urine Bacteria 1+ (Absent) A 09/05/18 08:39 Urine Glucose Negative (Negative) 09/05/18 08:39 - Objective Active Medications: Haloperidol Lactate (Haldol Inj Iv/Im*) 2 mg IM Q6H PRN PRN Reason: AGITATION Last Admin: 09/06/18 09:40 Dose: 2 mg Azithromycin (Zithromax 500 Mg/250 Ml) 500 mg in 250 mls @ 250 mls/hr IVPB Q24H [facility] Last Admin: 09/06/18 05:55 Dose: 250 mls/hr Ceftriaxone Sodium 1 gm/ (Sodium Chloride) 50 mls @ 200 mls/hr IVPB Q24H [facility] Last Admin: 09/06/18 05:33 Dose: 200 mls/hr Sodium Chloride (Ns 0.9% 1000 Ml) 1,000 mls @ 100 mls/hr IV PER RATE [facility] Lorazepam (Ativan Inj*) 0.5 mg IV PUSH Q4H PRN PRN Reason: Anxiety/Severe agitation Miscellaneous (Ativan Pyxis Kim) 1 ea N/A .ATIVAN IV KIM PRN PRN Reason: PYXIS KIM Morphine Sulfate (Morphine Inj (Syringe))*) 1 mg IV Q1H PRN PRN Reason: Severe Pain/RR>24 Last Admin: 09/06/18 14:10 Dose: 1 mg Vital Signs: Vital Signs: Temp Pulse Resp BP Pulse Ox 98.2 F 71 18 98/49 86 09/06/18 15:35 09/06/18 15:35 09/06/18 15:35 09/06/18 15:35 09/06/18 15:35 Patient Weight: Weight 63.503 kg Intake and Output: Intake & Output 09/04/18 09/05/18 09/06/18 09/07/18 06:59 06:59 06:59 06:59 Intake Total 4610 1952 Output Total 1150 1200 Balance 3460 752 Weight 51.437 kg 63.503 kg Intake: IV Fluids 4450 1951 NS 3300 1951 zoledronic acid 100 Oral 160 Output: Urine 250 Nathan 900 1200 Other: Date of Last Bowel unknwon Movement # Bowel Movements 0 unknown ADLs: Meal Record Start: 09/05/18 06: 58 Freq: DAILY@0900,1400,1800 Status: Active Protocol: Created 09/05/18 06:58 System (Rec: 09/05/18 06:58 System [id number]) Document 09/05/18 09:00 [id number] (Rec: 09/05/18 16:15 [id number] MED-C09) Document 09/05/18 14:00 [id number] (Rec: 09/05/18 19:43 [id number] MED-C11) Document 09/05/18 18:00 [id number] (Rec: 09/05/18 19:45 [id number] MED-C11) Document 09/06/18 07:40 [id number] (Rec: 09/06/18 07:40 [id number] MED-M01) Document 09/06/18 14:00 [id number] (Rec: 09/06/18 14:44 [id number] MED-C11) Intake and Output Start: 09/05/18 02: 55 Freq: Status: Cancelled Protocol: Created 09/05/18 02:55 System (Rec: 09/05/18 02:55 System [id number]) Intake and Output Start: 09/05/18 06: 58 Freq: DAILY@0600,1400,2200 Status: Cancelled Protocol: Created 09/05/18 06:58 System (Rec: 09/05/18 06:58 System [id number]) Intake and Output Start: 09/05/18 14: 49 Freq: 06,14,2200 Status: Active Protocol: Created 09/05/18 14:49 [id number] (Rec: 09/05/18 14:49 [id number]) Document 09/05/18 21:26 [id number] (Rec: 09/05/18 21:27 [id number] MED-C26) Document 09/06/18 05:58 [id number] (Rec: 09/06/18 05:59 [id number] MED-C26) Document 09/06/18 14:00 [id number] (Rec: 09/06/18 14:44 [id number] MED-C11) Eyes: - - Left orbital ecchymosis Ears/Nose/Mouth/Throat: Mucous Membranes Moist Neck: Trachea Midline Cardiovascular: RRR - Normal S1 and S2 Abdominal: NL Sounds; No Tenderness; No Distention Extremities: - - No cyanosis or edema, has good capillary refill Neurological: - - Lethargic, arousable to voice, cursing examiner and RN, doesn' t follow commands, but moves 4 extremities - Assessment Assessment: 78 yo female with hypercalemia, RUL mass, pneumonia and L3 fracture - Plan Consult Plan (MU): Hospice Plan: Spoke with son he felt given his mother's avoidance of doctors she would not want her life prolonged and opted for DNR/DNI. Because she is unresponsive, after speaking with the hospitalist, it was decided to pursue comfort care measures. Pt is getting some fluids and antibiotics. I was unable to discuss some other issues since relatives arrived, will follow up with son tomorrow. Support given and questions answered. KPS 20%, PPS 20% - Time On Unit Date of Evaluation: 09/06/18 Hospice Consult Time in: 15:30 Hospice Consult Time Out: 16:30 Hospice Consult Time Total: 60 > 50% of Time Spend In Counseling or Coordinating Care: Yes
--- NOTE | 2018-09-06 18:10 | CONS ---
PULMONARY CONSULTATION REPORT: DATE OF CONSULT: 09/06/18 CONSULTATION REQUESTED BY: Dr. Lorenzo. REASON FOR CONSULT: Evaluation of abnormal CT chest. HISTORY OF PRESENT ILLNESS: The patient is a 78-year-old female, current smoker , with significant smoking history, who presents for evaluation of fall. The patient is unable to provide any history at this time due to metabolic encephalopathy, elevated calcium. History obtained from in care hospitalist physician and review of her medical records. As per the bedside RN, the patient continues to be combative. She was not in any significant distress at the time of my exam. She was not combative. She was unable to, however, provide any history. The patient was admitted for management of hypercalcemia. Further evaluation in the hospital showed significant mediastinal adenopathy. I have personally reviewed the CT scan of her chest. The patient with right hilar mass with dense lymphadenopathy in the mediastinum. The patient also with multifocal ground-glass opacities and a mass- like consolidation in the right upper lobe. She also has small right pleural effusion. The patient with destructive osseous lesion in T11 and chronic compression fracture in T6. She has a history of thyroid nodules, found to have enlarged left thyroid with multiple nodules, largest measuring 3.2 cm. PAST MEDICAL HISTORY: Partial thyroidectomy and right parathyroid removal 2 years ago for possible benign lesions. FAMILY HISTORY: Thyroid disease. SOCIAL HISTORY: She lives alone and is independent with her activities of daily living. Significant smoking history, continues to smoke about 6 cigarettes prior to the hospitalization. REVIEW OF SYSTEMS: Unable to obtain secondary to the patient's condition. PHYSICAL EXAM: An elderly female, in bed, in no apparent distress, opens her eyes to questions. Vital Signs: Temperature 98.2, pulse 71 beats per minute, respiratory rate 18 per minute, O2 sat 86% on room air, blood pressure 98/49. HEENT: Pupils equal, reactive to light. Mucous membranes moist. Lungs: Diminished air entry; however, clear to auscultation. Lymphatic: No palpable supraclavicular or cervical adenopathy. Abdomen: Soft, nontender, nondistended. Bowel sounds present. Extremities: Normal range of motion. DIAGNOSTIC STUDIES/LAB DATA: WBC count 6.4, hemoglobin 10.3, hematocrit 31, platelet count of 220. Sodium 143, potassium 3.4, chloride 112, bicarb 22, BUN 27, creatinine 0.73, calcium 16.3 on admission down to 12.7 today. Troponin is slightly elevated. PTH 5.4, calcium/PTH ratio significantly elevated. CT scan of the chest as described above in HPI. IMPRESSION AND RECOMMENDATIONS: 78-year-old female with significant smoking history with right hilar mass and significant mediastinal adenopathy, possible destructive lesion in T11 concerning for bone mets, also with hypercalcemia and confusion as a result of that. Findings concerning for lung cancer, likely squamous with hypercalcemia. She also has postobstructive pneumonia secondary to the dense right hilar mass in the right upper lobe area. She is on antibiotics for postobstructive pneumonia. Septic workup has been negative so far. The patient is still with altered mental status. Pulmonary consultation was requested for bronchoscopy for diagnosis. Bronchoscopy could not be performed at this time given her underlying condition. Reviewed palliative care consultation. Family is leaning towards palliative care comfort measures. If family decides tissue diagnosis, will then schedule her for a bronchoscopy when she is stable. Thank you for allowing me to participate in the care of your patient. Will follow up with you. [id number]/[facility] #: [id number] ELAINA
--- NOTE | 2018-09-07 00:05 | PN ---
Progress Note - Progress Note Date of Service: 09/07/18 Note: Discussed with patient's son earlier today. Chart notes reviewed. Patient's family would like to pursue care and comfort measures at this point and would not like to consider surgical intervention or other treatments at this point. Appreciate , Paliative care. Mustapha Loera MD
[2018-09-07] MEDS: LORazepam INJ* 2 MG/ML 1 ML VIAL IV PUSH PRN ×3 (02:50→22:36)
[2018-09-07] MEDS: cefTRIAXone(*) 1 GM in NS 0.9% 50 ML* 50 ML IVPB SCH (04:27)
[2018-09-07] MEDS: Azithromycin 500 mg/250 ml NS 500 MG/250 ML BAG IVPB SCH (04:51)
[2018-09-07] MEDS: NS 0.9% 1000 ML** 1,000 ML IV SCH (09:50)
[2018-09-07] MEDS ORDERED: Atropine 1% (ORAL/SL)* 15 ML BTL SL PRN (12:06)
[2018-09-07] MEDS: Morphine INJ* 2 MG/ML 1 ML SYRINGE (TWO MG - NEW SYRINGE VERSION) IV PRN ×2 (13:28→19:59)
--- NOTE | 2018-09-07 19:33 | PN ---
Subjective Date of Service: 09/07/18 Interval History: HOSPITALIST PROGRESS NOTE Patient seen and examined at bedside. Care reviewed and d/w Erna Solano RN. She requires multiple doses of Morphine yesterday, but none this AM. Was lethargic when I saw her, but became tachypneic and agitated when I examined her. Multiple family members at bedside. Family History: Unchanged from Admission Social History: Unchanged from Admission Past Medical History: Unchanged from Admission Objective Active Medications: Atropine Sulfate (Atropine 1% (Oral/Sl)*) 2 drop SL Q2H PRN PRN Reason: Terminal secretions Lorazepam (Ativan Inj*) 0.5 mg IV PUSH Q4H PRN PRN Reason: Anxiety/Severe agitation Last Admin: 09/07/18 15:26 Dose: 0.5 mg Miscellaneous (Ativan Pyxis Kim) 1 ea N/A .ATIVAN IV KIM PRN PRN Reason: PYXIS KIM Morphine Sulfate (Morphine Inj (Syringe))*) 1 mg IV Q1H PRN PRN Reason: Severe Pain/RR>24 Last Admin: 09/07/18 13:28 Dose: 1 mg Morphine Sulfate (Morphine Oral Concentrate*) 5 mg SL Q2H PRN PRN Reason: Pain/Tachypnea RR>24 Vital Signs - 8 hr 09/07/18 09/07/18 09/07/18 13:28 14:25 15:26 Respiratory 19 18 22 Rate Oxygen Devices in Use Now: Nasal Cannula Appearance: Elderly frail lady lying in bed in NAD. Eyes: No Scleral Icterus Ears/Nose/Mouth/Throat: Mucous Membranes Moist Neck: Trachea Midline Respiratory: Symmetrical Chest Expansion and Respiratory Effort, - - BS+ bilaterally, with bibasilar crackles Cardiovascular: RRR - Normal S1 and S2 Abdominal: NL Sounds; No Tenderness; No Distention Neurological: - - Lethargic, withdraws all 4 ext from touch Result Diagrams: 09/06/18 06:46 09/06/18 06:46 Microbiology and Other Data: Microbiology 09/05/18 04:51 Aerobic Blood Culture - Preliminary Blood Venous No Growth Day 1 Anaerobic Blood Culture - Preliminary No Growth Day 1 09/05/18 18:17 Legionella Urinary Antigen - Final Urine Negative Legionella Antigen 09/05/18 18:17 Streptococcus pneumoniae Ag Screen - Final Urine Negative S. pneumo Antigen Assess/Plan/Problems-Billing Assessment: Mrs Vallejo is a 78yo F with PMH of thyroid disease, who presented to ED after being found down at home, found to have severe hypercalcemia, hilar mass and bone lesions suggestive of metastatsis. - Patient Problems (1) Hypercalcemia Comment: - Likely associated with malignancy. - >18 on admission, down to 12.7. - PTH is 5.4, vitamin D 12.8. PTHrp elevated at 9. - Received Zoledronic acid 09/05/18. - No further blood tests as goal is for comfort. (2) Hypotension Comment: - Suspect hypovolemia in the setting of severe hypercalcemia. - BP improved with IVF and she's starting to show signs of fluid overload - will d/c IVF. (3) Pneumonia Comment: - Suspect post obstructive pneumonia in the setting of righ hilar mass. - D/w family - at this point antibiotics are no adding to her comfort, and will not change her primary issue (metastatic lung CA) - d/c Ceftriaxone/Zithromax. (4) Hilar mass Comment: - CT chest shows a right hilar mass, likely represents primary Lung CA. (5) Vertebral fracture Comment: - CT shows T11 destructive osseous lesion with possible vertebral fracture; chronic compression fracture T6; indeterminate L3 burst fracture. - Thoracic spine CT shows T6 epidural expansion of tumor and possible spinal cord compression. (6) DVT prophylaxis Comment: - SQ heparin discontinue as goal now is for comfort. (7) DNR (do not resuscitate) Current Visit: Yes Status: Acute (8) End of life care Comment: - Son and DIL updated at bedside - they confirm she would not want to pursue any invasive/aggressive measures if she could make the decision at this time. They suspect she already had a suspicion she had "something going on" and was in denial, reason why she did not seek medical attention. - If her condition continues to decline, she'll likely pass while in the hospital; but now her severe hypercalcemia/dehydration have been treated, she may plateau in her current condition. [facility] d/w family and CM. - Family short term goal is for her to be alive on 09/09/18, when her older grandaughter will be here to visit. Status and Disposition: Inpatient.
[2018-09-08] MEDS: Morphine INJ* 2 MG/ML 1 ML SYRINGE (TWO MG - NEW SYRINGE VERSION) IV PRN ×4 (04:57→23:25)
[2018-09-08] MEDS: LORazepam INJ* 2 MG/ML 1 ML VIAL IV PUSH PRN ×2 (09:06→14:53)
--- NOTE | 2018-09-08 09:40 | CONS ---
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 HISTORY OF PRESENT ILLNESS: Gracy Vallejo is a 78-year-old female who developed a left hip pain approximately 3 months ago along with some back pain, but was using hot packs, which seemed to help some and Motrin which may have provided some relief. She never sought evaluation for this. About 3 weeks prior to admission, her mobility dramatically changed. She has lost approximately 30 pounds over a 3 month period, but as recently a 6 weeks ago was the family members who live nearby. Above history was provided by her son. On 09/04/18, her son came by to drop off some food, she tried to walk to door and collapsed inside her house. When her family was able to get inside the house, they found her lying on the floor, alert, but unable to get up. By the time she reached the emergency room, she was extremely confused and lethargic. She was found to be hypercalcemic and imaging showed multiple abnormalities. She was treated initially for the hypercalcemia with fluids, calcitonin and bisphosphonate. Imaging studies showed on CT scan of the spine a burst fracture of the L3 vertebral body with retropulsion into spinal canal. In addition, there was a fracture of the transverse process of L3. Thoracic spine imaging revealed pathologic compression fracture with epidural extension of T6. In addition, lesions were seen in the T7 vertebrae and the left 11th rib. Imaging of the chest revealed a large right hilar mass along with collaboration of mediastinal lymph nodes. There was also potentially a pathologic fracture of T11 and other bony lesions are seen as well. There was ground glass opacities noted in the remaining lungs, especially on the left upper and right lower lung regions. On admission, her calcium level was over 18, by the time of this consultation 1 day later, it was down to 12.7 with appropriate therapy. Initially she had been mildly hypotensive, later in the day with her blood pressure falling into the 90s, by the time of this consultation most recent blood pressure was back into the normal range. She has not been febrile. Her son notes as recently as 3 days prior to admission, she had not been confused. PAST MEDICAL HISTORY: Partial thyroidectomy, right parathyroid removal 2 years ago, status post cholecystectomy in the past. No hypertension, diabetes, NM, or CVA. FAMILY HISTORY: Father with bone cancer in his 80s. No other malignancies. SOCIAL HISTORY: Lives alone. She has been a longtime smoker, at least a pack per day in the past. Has family who live nearby including a son, who says that multiple family members live in housing near her. REVIEW OF SYSTEMS: Unobtainable. All the above history is from the son. PHYSICAL EXAMINATION: A 78-year-old female, who is quite lethargic and not answering questions, lying on the bed, although able to follow some simple commands. Vital Signs: As discussed above. HEENT: PERRL, EOMI. No erythema or exudates. No palpable cervical, supraclavicular, or axillary adenopathy. Lungs: Clear. Heart: Regular rate and rhythm without murmurs, rubs, or gallops. Abdomen is soft and nontender without masses or organomegaly. Extremities: No edema. Neurologic Exam: Does move all extremities. Unable to cooperate for further exam. IMPRESSION: A 78-year-old female, presents to the hospital with severe hypercalcemia along with multiple bony lesions and a large lung mass and mediastinal adenopathy. This is almost certainly a metastatic carcinoma as is explained to her son. This is certainly not a curable situation. Concerning that she could develop spinal cord compression and neurologic deficits if left untreated without surgery or radiation. PLAN: Plan at the time of consultation is for an MRI of the T-spine along with CT of the abdomen and pelvis. If radiation therapy is to be contemplated, then she will need a biopsy of either the large mediastinal mass or if something found on the CT of the abdomen and pelvis. At the time of this consultation, the son is unclear whether he wishes to proceed forward with further workup. ADDENDUM: After further discussion with hospitalist service, the son feels that his mother would not want either radiation or chemotherapy and therefore, the remainder of the workup would be moot. Decision is made to transfer the patient to comfort care status and not pursue a workup. Left expectancy is extremely short. It is expected that her calcium level will rise and depending on the source of her hypotension at this time, which would not be further _ she could also by the causes even before she was with arrhythmias from the hypercalcemia. [id number]/[facility] #: [id number] [facility]
[2018-09-08] MEDS: Morphine ORAL CONCENTRATE* 5 MG/0.25 ML ORAL.SYRIN SL PRN ×2 (11:40→13:46)
--- NOTE | 2018-09-08 15:42 | PN ---
Subjective Date of Service: 09/08/18 Interval History: Patient not able to make her needs known. She tried to get out of bed ? to go home earlier today and was given morphine. Family History: Unchanged from Admission Social History: Unchanged from Admission Past Medical History: Unchanged from Admission Objective Active Medications: Atropine Sulfate (Atropine 1% (Oral/Sl)*) 2 drop SL Q2H PRN PRN Reason: Terminal secretions Lorazepam (Ativan Inj*) 0.5 mg IV PUSH Q4H PRN PRN Reason: Anxiety/Severe agitation Last Admin: 09/08/18 14:53 Dose: 0.5 mg Miscellaneous (Ativan Pyxis Kim) 1 ea N/A .ATIVAN IV KIM PRN PRN Reason: PYXIS KIM Morphine Sulfate (Morphine Inj (Syringe))*) 1 mg IV Q1H PRN PRN Reason: Severe Pain/RR>24 Last Admin: 09/08/18 14:54 Dose: 1 mg Morphine Sulfate (Morphine Oral Concentrate*) 5 mg SL Q2H PRN PRN Reason: Pain/Tachypnea RR>24 Last Admin: 09/08/18 13:46 Dose: 5 mg Vital Signs - 8 hr 09/08/18 09/08/18 09/08/18 08:00 09:06 11:40 Respiratory 16 18 24 Rate 09/08/18 09/08/18 09/08/18 13:46 14:53 14:54 Respiratory 18 30 30 Rate Oxygen Devices in Use Now: Nasal Cannula Appearance: Eyes closed, head partly up supine in bed. Looks comfortable. Neurological: - - Unresponsive to voice. Looks comfortable. Result Diagrams: 09/06/18 06:46 09/06/18 06:46 Microbiology and Other Data: Microbiology 09/05/18 04:51 Aerobic Blood Culture - Preliminary Blood Venous No Growth Day 1 Anaerobic Blood Culture - Preliminary No Growth Day 1 09/05/18 18:17 Legionella Urinary Antigen - Final Urine Negative Legionella Antigen 09/05/18 18:17 Streptococcus pneumoniae Ag Screen - Final Urine Negative S. pneumo Antigen Assess/Plan/Problems-Billing Assessment: Mrs Vallejo is a 78yo F with PMH of thyroid disease, who presented to ED after being found down at home, found to have severe hypercalcemia, hilar mass and bone lesions suggestive of metastatsis. - Patient Problems (1) End of life care Current Visit: Yes Status: Acute Code(s): Z51.5 - ENCOUNTER FOR PALLIATIVE CARE SNOMED Code(s): 577921847 Comment: - Son and DIL updated at bedside again on 09/08 - Family short term goal is for her to be alive on 09/09/18, when her older grandaughter will be here to visit. 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 Status and Disposition: Inpatient.
--- NOTE | 2018-09-09 15:24 | PN ---
Subjective Interval History: No acute events overnight. Comfort Care Had some fruit, tuna and strawfuls of water administered by son Mitchell. Family visits, a grand-daughter coming in from out of town tomorrow. "Get the boy" she shouts to her son. morphine IV at 2300, 2100,1400 yesterday Family History: Unchanged from Admission Social History: Unchanged from Admission Past Medical History: Unchanged from Admission Objective Active Medications: Atropine Sulfate (Atropine 1% (Oral/Sl)*) 2 drop SL Q2H PRN PRN Reason: Terminal secretions Lorazepam (Ativan Inj*) 0.5 mg IV PUSH Q4H PRN PRN Reason: Anxiety/Severe agitation Last Admin: 09/08/18 14:53 Dose: 0.5 mg Miscellaneous (Ativan Pyxis Gilmore) 1 ea N/A .ATIVAN IV GILMORE PRN PRN Reason: PYXIS GILMORE Morphine Sulfate (Morphine Inj (Syringe))*) 1 mg IV Q1H PRN PRN Reason: Severe Pain/RR>24 Last Admin: 09/08/18 23:25 Dose: 1 mg Morphine Sulfate (Morphine Oral Concentrate*) 5 mg SL Q2H PRN PRN Reason: Pain/Tachypnea RR>24 Last Admin: 09/08/18 13:46 Dose: 5 mg Vital Signs - 8 hr 09/09/18 08:00 Respiratory 18 Rate Oxygen Devices in Use Now: Nasal Cannula Appearance: NAD but delerious Neurological: - - DOUGLAS, occasionally shouting. Nutrition: Taking PO's Result Diagrams: 09/06/18 06:46 09/06/18 06:46 Microbiology and Other Data: Microbiology 09/05/18 04:51 Blood Venous Aerobic Blood Culture - Preliminary No Growth Day 4 09/05/18 04:51 Blood Venous Anaerobic Blood Culture - Preliminary No Growth Day 4 09/05/18 08:39 Urine Urine Culture - Final 09/05/18 18:17 Urine Legionella Urinary Antigen - Final Negative Legionella Antigen 09/05/18 18:17 Urine Streptococcus pneumoniae Ag Screen - Final Negative S. pneumo Antigen Assess/Plan/Problems-Billing Assessment: Mrs Vallejo is a 78yo F with PMH of thyroid disease, who presented to ED after being found down at home, found to have severe hypercalcemia, hilar mass and bone lesions suggestive of metastatsis. - Patient Problems (1) End of life care Current Visit: Yes Status: Acute Code(s): Z51.5 - ENCOUNTER FOR PALLIATIVE CARE SNOMED Code(s): 572582417 Comment: - Son Juancho updated at bedside again on 09/09 - Family short term goal is for her to be alive on 09/10/18, when her older grandauandriy will be here to visit from out of town. 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 [facility] was consulted 09/[address] Cash 's notes. (2) DNR (do not resuscitate) Current Visit: Yes Status: Acute (3) Hypercalcemia Current Visit: Yes Status: Acute Code(s): E83.52 - HYPERCALCEMIA SNOMED Code(s): 15769625 Comment: - Likely associated with malignancy. - >18 on admission, down to 12.7. - PTH is 5.4, vitamin D 12.8. PTHrp elevated at 9. - Received Zoledronic acid 09/05/18. - No further blood tests as goal is for comfort. Status and Disposition: Inpatient. hospicare was consulted 09/06.
[2018-09-09] MEDS: LORazepam INJ* 2 MG/ML 1 ML VIAL IV PUSH PRN (22:55)
[2018-09-10] MEDS: LORazepam INJ* 2 MG/ML 1 ML VIAL IV PUSH PRN (04:57)
--- NOTE | 2018-09-10 10:41 | PN ---
Subjective Date of Service: 09/10/18 Interval History: Patient not able to make her needs known. Son at bedside, seems very satisfied with her care. Family History: Unchanged from Admission Social History: Unchanged from Admission Past Medical History: Unchanged from Admission Objective Active Medications: Atropine Sulfate (Atropine 1% (Oral/Sl)*) 2 drop SL Q2H PRN PRN Reason: Terminal secretions Lorazepam (Ativan Inj*) 0.5 mg IV PUSH Q4H PRN PRN Reason: Anxiety/Severe agitation Last Admin: 09/10/18 04:57 Dose: 0.5 mg Miscellaneous (Ativan Pyxis Kim) 1 ea N/A .ATIVAN IV KIM PRN PRN Reason: PYXIS KIM Morphine Sulfate (Morphine Inj (Syringe))*) 1 mg IV Q1H PRN PRN Reason: Severe Pain/RR>24 Last Admin: 09/08/18 23:25 Dose: 1 mg Morphine Sulfate (Morphine Oral Concentrate*) 5 mg SL Q2H PRN PRN Reason: Pain/Tachypnea RR>24 Last Admin: 09/08/18 13:46 Dose: 5 mg Vital Signs - 8 hr 09/10/18 09/10/18 04:57 08:00 Respiratory 18 24 Rate Oxygen Devices in Use Now: Nasal Cannula Appearance: Obtunded, mumbles in response to voice but doesn't open her eyes. Looks comfortable. Extremities: No Edema, No Clubbing, Cyanosis, - Skin: No Rash or Ulcers, No Nodules or Sclerosis, - Neurological: - - Obtunded, mumbles in response to voice but doesn't open her eyes. Result Diagrams: 09/06/18 06:46 09/06/18 06:46 Microbiology and Other Data: Microbiology 09/05/18 04:51 Blood Venous Aerobic Blood Culture - Preliminary No Growth Day 4 09/05/18 04:51 Blood Venous Anaerobic Blood Culture - Preliminary No Growth Day 4 09/05/18 08:39 Urine Urine Culture - Final 09/05/18 18:17 Urine Legionella Urinary Antigen - Final Negative Legionella Antigen 09/05/18 18:17 Urine Streptococcus pneumoniae Ag Screen - Final Negative S. pneumo Antigen Assess/Plan/Problems-Billing Assessment: Mrs Vallejo is a 78yo F with PMH of thyroid disease, who presented to ED after being found down at home, found to have severe hypercalcemia, hilar mass and bone lesions suggestive of metastatsis. - Patient Problems (1) End of life care Current Visit: Yes Status: Acute Code(s): Z51.5 - ENCOUNTER FOR PALLIATIVE CARE SNOMED Code(s): 784563800 Comment: - Son Juancho updated at bedside again on 09/10 Dx likely malignant hypercalcemia, lung cancer [also with significant thyroid abnormalities] - Appreciate palliative care consult. [facility] was consulted 09/[address] Cash 's notes. Status and Disposition: Inpatient. hospicare was consulted 09/06.
[2018-09-10 10:50] VITALS: BP 112/65
--- NOTE | 2018-09-10 11:28 | PN ---
Progress Note - Progress Note Date of Service: 09/10/18 Note: Time spent on discharge including exam of patient, discussion with son, nurse CM , review of EMR and preparation of discharge documents is 40 minutes.
--- NOTE | 2018-09-10 12:44 | DS ---
DISCHARGE SUMMARY: DATE OF ADMISSION: DATE OF DISCHARGE: 09/10/18 HISTORY OF PRESENT ILLNESS: This 78-year-old woman presented with weakness and inability to get up o ff the floor. She had had decreased mobility for several months. A week ago, the son suggested that she see a doctor, but she refused. She had not seen a doctor for a long period of time. Her sons t hought she had lost about 50 pounds. Rest of the history is detailed in the admission note. She was found to have hypercalcemia as well as right upper lobe hilar adenopathy and a mass like infi ltrate. She was given bisphosphonate intravenously as well as intravenous fluids and furosemide. He r hypercalcemia improved. The patient was seen by Dr. Cash for palliative care consultation. The patient was unresponsive. At that time, the son felt that she would not want any type of aggressive t reatment and made her a DNR and felt that hospice care would be most appropriate. The bisphosphonate may control her hypercalcemia for sometime. She has not had anything to eat or dr ink for some time, however, and I think her chances of recovery are poor. Most likely she does have lung cancer and would decline in any case at an uncertain rate. FINAL DIAGNOSES: 1. Hypercalcemia. 2. Possible lung cancer. DISCHARGE MEDICATIONS: 1. Atropine 1% 3 drops sublingual every 2 hours p.r.n. 2. Morphine oral concentrate 5 mg sublingual every 30 minutes p.r.n. 3. Lorazepam 0.5 mg sublingual every 2 hours p.r.n. CONDITION ON DISCHARGE: Guarded. DISPOSITION ON DISCHARGE: Discharged to [facility]. [id number]/[facility] #: [id number]
== END 2018-09-10 13:10 | disposition hospice, home (50) | DRG 180 ==
LOC: ED 02:47 → MED 05:43
PROVIDERS: ADMIT Internal Medicine; ATTEND Internal Medicine
DX: C34.11 Malignant neoplasm of upper lobe, right bronchus or lung (principal); J18.9 Pneumonia, unspecified organism; S32.031A Stable burst fracture of third lumbar vertebra, initial encounter for closed fracture; M48.54XA Collapsed vertebra, not elsewhere classified, thoracic region, initial encounter for fracture; E83.52 Hypercalcemia; K59.00 Constipation, unspecified; E89.2 Postprocedural hypoparathyroidism; F17.210 Nicotine dependence, cigarettes, uncomplicated; W19.XXXA Unspecified fall, initial encounter; R79.89 Other specified abnormal findings of blood chemistry; S00.83XA Contusion of other part of head, initial encounter; I95.9 Hypotension, unspecified; R91.8 Other nonspecific abnormal finding of lung field; Z51.5 Encounter for palliative care; Z66 Do not resuscitate; M89.9 Disorder of bone, unspecified; R41.0 Disorientation, unspecified; R59.0 Localized enlarged lymph nodes; Y92.009 Unspecified place in unspecified non-institutional (private) residence as the place of occurrence of the external cause; Z83.49 Family history of other endocrine, nutritional and metabolic diseases; Z90.49 Acquired absence of other specified parts of digestive tract; Z80.8 Family history of malignant neoplasm of other organs or systems; Z88.0 Allergy status to penicillin
CPT/HCPCS: 36415; 70450; 70486; 71045; 71250; 72125; 72128; 72131; 72148; 80048; 80053; 81003; 81015; 82306; 82330; 82397; 82550; 83605; 83880; 83970; 84100; 84484; 85025; 85610; 85730; 87040; 87086; 87899; 93005; 99285; A9270-GY; J0456; J0630; J0696; J1630; J1644; J2060; J2270; J3489